=== PATIENT | female | born 1960 | race Caucasian/White ===

== ENCOUNTER → 2019-04-10 | Outpatient (CLI) | payer OTHER, SELFPAY ==
--- NOTE | 2019-04-10 14:10 | CT_ITS ---
STUDY: CT RIGHT WRIST REASON FOR EXAM: Scaphoid fracture. TECHNIQUE: Transaxial CT imaging of the wrist was performed. Sagittal and coronal images were reconstructed. Individualized dose optimization techniques were used for this CT. COMPARISON: None. FINDINGS: Normal distal radius and distal ulna. Normal distal radioulnar joint. There is a fracture of the mid scaphoid with osseous union of the majority (approximately 80%) of the fracture (coronal reconstructions 29-31) without osseous bridging at the dorsal aspect of the fracture site (sagittal reconstructions 36, 37). There is mild cystic change adjacent to the palmar aspect of the scaphoid fracture (coronal reconstruction 29) but no increased sclerosis in the proximal pole to suggest avascular necrosis. Normal articulations of the radiocarpal and midcarpal compartments of the wrist. Normal carpometacarpal joints and visualized metacarpals. The soft tissue structures are unremarkable. CT/Extremity Upper without Contra IMPRESSION: Mid scaphoid fracture with osseous union of the majority of the fracture. Electronically Signed: Brayan Jang MD at 14:56 EST Tel , Service support ,
== END | disposition home or self-care (01) ==
LOC: CT 14:05
PROVIDERS: Family Provider Family Medicine; PCP Family Medicine; Referring Provider Physician Assistant; Visit Provider Physician Assistant
DX: S62.024K Nondisplaced fracture of middle third of navicular [scaphoid] bone of right wrist, subsequent encounter for fracture with nonunion (principal)
CPT/HCPCS: 73200